=== PATIENT | female | born 1970 | race Caucasian/White ===

== ENCOUNTER → 2021-04-30 | Outpatient (CLI) | payer BC ==
--- NOTE | 2021-04-30 12:07 | CONS ---
CONSULTATION DATE OF SERVICE: 04/30/2021 50-year-old lady has [facility] sleep apnea for possible obstructive sleep apnea-hypopnea syndrome. HISTORY OF PRESENT ILLNESS SLEEP-WAKE EVALUATION: Patient had a home sleep study in August of 2021 by another institution, which showed apnea-hypopnea index 22.6 with oxygen desaturation to 86%. After that, patient was started on treatment with CPAP, tried different types of the mask including nasal pillows and dream Wear but was not able to use CPAP therapy and because of not compliancy, she returned her machine. SLEEP SCHEDULE: Presently, her sleep schedule from 10 p.m. until 6:15 am on weekdays and from 10 p.m. to 7:30 a.m. on weekends. FALLING ASLEEP: No problems with falling asleep. No TV in bedroom. DURING SLEEP: The patient sleeps only on the stomach position. She wakes up from sleep once with nocturia. She has loud snoring and episodes of stopped breathing during sleep. DURING THE DAY/SLEEP WAKE EVALUATION: In the morning, the patient wakes up tired Has problems with memory. [place] Sleepiness Scale is 9. Usually she does not take naps. PAST MEDICAL HISTORY: Positive for sinus problems, headaches. PAST SURGICAL HISTORY: Nasal surgery for nasal septum deviation. MEDICATIONS: Sumatriptan 100 mg as needed. SOCIAL HISTORY: Negative for smoking or using alcohol. FAMILY HISTORY: Positive for headaches. REVIEW OF SYSTEMS: Snoring, awakenings from sleep, headaches, difficulties to breathe through the nose. PHYSICAL EXAMINATION: GENERAL: lady without distress. BP 116/72, HR 68, height 5 feet 5 inches, weight 171 pounds, body mass index 28.4, temperature 98.0, oxygen saturation at room air 100%. Oropharynx: Extremely low position of soft palate, Mallampati 4. Neck is 13 inches in circumference, restriction of nasal breathing. NECK: Supple, no JVD. Thyroid is not palpable. LUNGS: Clear to percussion and to auscultation. Good air exchange. No wheezing or rhonchi. HEART: S1, S2 regular. No murmurs, gallops, or rubs. ABDOMEN: Soft and nontender. Bowel sounds are present. No organomegaly appreciated. EXTREMITIES: No clubbing or cyanosis. MANAGER SHIPPING: Awake, alert, and oriented X3. Cranial nerves 2 to 7 intact. There is no fasciculation or atrophy. noted. No focal deficits observed. IMPRESSION: 1. Snoring, awakenings from sleep with nocturia, extremely low position of soft palate, Mallampati 4, history of obstructive sleep apnea-hypopnea syndrome documented by home sleep apnea test in moderate range by another institution in August of 2019, obstructive sleep apnea-hypopnea syndrome. 2. Headaches. 3. Overweight, body mass index 28.4. 4. Restriction of nasal breathing. PLAN: 1. Home sleep apnea test for evaluation of patient breathing during sleep. 2. If she will need treatment with CPAP, consider usage of nasal strips, chinstrap in addition to usage of the CPAP with a mask. 3. Watching and losing weight. 4. No driving if feeling sleepiness. Thank you very much for referring this patient for consultation. Sincerely, Robi Hoffmann MD, PhD, FAASM Diplomat of [place] [employer] Sleep Medicine Board of [place] [employer] Insurance Premium Auditor of [facility] MMODL / IJN: [id number] /
== END ==
LOC: SLEEP 10:28
PROVIDERS: ATTEND Internal Medicine
DX: G47.33 Obstructive sleep apnea (adult) (pediatric) (principal); E66.3 Overweight; R35.1 Nocturia; Z68.28 Body mass index [BMI] 28.0-28.9, adult; R09.81 Nasal congestion
CPT/HCPCS: 99202